=== PATIENT | female | born 1985 | race Hispanic/Latino ===

== ENCOUNTER 2017-06-22 15:32 | Emergency (ER) | payer SELFPAY ==
[~2017-06-22] VITALS: Ht 167.6 cm; Wt 85.3 kg
[2017-06-22 16:18] LABS: BASOPHILS # (AUTO) 0.1 (0.0-0.1); BASOPHILS % 1.3 % (0.0-1.0); EOSINOPHILS # (AUTO) 0.3 (0.0-0.4); EOSINOPHILS % 3.3 % (0.0-6.0); HEMATOCRIT 39.9 % (34.2-44.1); HEMOGLOBIN 13.3 g/dL (12.0-16.0); LYMPHOCYTES # (AUTO) 2.7 (1.0-3.2); LYMPHOCYTES % 26.5 % (18.0-39.1); MEAN CORPUSCULAR HEMOGLOBIN 28.3 pg (28-32); MEAN CORPUSCULAR HGB CONC 33.3 g/dL (31-35); MEAN CORPUSCULAR VOLUME 84.9 fL (81-99); MONOCYTES # (AUTO) 0.6 (0.2-0.8); NEUTROPHILS # (AUTO) 6.4 (2.1-6.9); NEUTROPHILS % 62.4 % (38.7-80.0); PLATELET COUNT 393 x10e3/uL (140-360); RED CELL DISTRIBUTION WIDTH 12.9 % (11.7-14.4)
[2017-06-22 16:31] LABS: INR 1.01; PROTHROMBIN TIME 12.5 seconds (11.9-14.5)
[2017-06-22 16:38] LABS: ALANINE AMINOTRANSFERASE 17 IU/L (0-55); ALBUMIN 3.5 g/dL (3.5-5.0); ALBUMIN/GLOBULIN RATIO 0.8 (0.8-2.0); ALKALINE PHOSPHATASE 87 IU/L (40-150); ANION GAP 10.8 mmol/L (8-16); BLOOD UREA NITROGEN 15 mg/dL (7-26); BUN/CREATININE RATIO 17 (6-25); CALCIUM 9.4 mg/dL (8.4-10.2); CARBON DIOXIDE 25 mmol/L (22-29); CHLORIDE 103 mmol/L (98-107); CREATININE, SERUM 0.89 mg/dL (0.57-1.11); EST GLOMERULAR FILTRATION RATE > 60 ML/MIN (60-); GLUCOSE 349 mg/dL (74-118); POTASSIUM 3.8 mmol/L (3.5-5.1); SODIUM 135 mmol/L (136-145)
--- NOTE | 2017-06-22 16:40 | Diagnostic Imaging Report ---
PROCEDURE:HAND RIGHT 3 VIEWS AP \T\ LAT COMPARISON:None. INDICATIONS:RIGHT FOURTH DIGIT INFECTION SINCE SURGERY ON May FINDINGS: Normal mineralization. No acute displaced fracture or dislocation. No cortical erosion or destruction. Joint spaces are preserved. No cystic erosive changes. Moderate soft tissue swelling in the fourth finger, predominantly in the distal aspect. CONCLUSION: Moderate soft tissue swelling of the fourth finger, predominantly in the distal aspect, without underlying bony abnormalities. Sonu Mills M.D. Dictated by: Sonu Mills M.D. on 06/22/2017 at 16:41 Electronically approved by: Sonu Mills M.D. on 06/22/2017 at 16:41
[2017-06-22] MEDS ORDERED: VANCOMYCIN 1GM/NS 250 ML 250 ML IV STA (17:06)
[2017-06-22] MEDS ORDERED: PIPER-TAZ 3.375 GM 50 ML IV STA (17:06)
[2017-06-22] MEDS ORDERED: INSULIN REGULAR, HUMAN 100 UNIT/1 ML 3ML VIAL IV ONE (19:00)
[2017-06-22 19:37] VITALS: BP 154/97
== END 2017-06-22 19:41 | disposition home or self-care (01) ==
LOC: ER 15:42
DX: L03.011 Cellulitis of right finger (principal)
CPT/HCPCS: 36415; 73130; 80053; 85025; 85610; 85730; 99283; J2543; J3370

== ENCOUNTER 2017-10-15 22:04 | Emergency (ER) | payer SELFPAY ==
[~2017-10-15] VITALS: Ht 167.6 cm; Wt 85.3 kg
[2017-10-15] MEDS ORDERED: CLINDAMYCIN PHOS 600 MG/ 4 ML VIAL IM STA (22:51)
[2017-10-15] MEDS ORDERED: NEOMYCIN/POLYMYX/BACITR OINT 0.9 GM PKT TOP STA (23:31)
== END 2017-10-16 00:17 | disposition home or self-care (01) ==
LOC: ER 22:04
DX: L03.114 Cellulitis of left upper limb (principal); E11.9 Type 2 diabetes mellitus without complications; I10 Essential (primary) hypertension; F19.90 Other psychoactive substance use, unspecified, uncomplicated; F17.210 Nicotine dependence, cigarettes, uncomplicated
CPT/HCPCS: 99282

== ENCOUNTER 2019-01-22 11:44 | Emergency (ER) | payer SELFPAY ==
[~2019-01-22] VITALS: Ht 167.6 cm; Wt 113.4 kg
[~2019-01-22 11:44] MED LIST: CIPRODEX OTIC7.5 ML OT; DEBROX15 ML OT; ZOFRAN4 MG SL
[2019-01-22] MEDS ORDERED: SODIUM CHLORIDE 0.9% 1000ML 1,000 ML IV STA (12:26)
[2019-01-22] MEDS ORDERED: INSULIN REGULAR, HUMAN 100 UNIT/1 ML 3ML VIAL SQ ONE (12:30)
[2019-01-22 12:35] LABS: BASOPHILS # (AUTO) 0.1 (0.0-0.1); BASOPHILS % 1.3 % (0.0-1.0); EOSINOPHILS # (AUTO) 0.3 (0.0-0.4); EOSINOPHILS % 3.3 % (0.0-6.0); HEMATOCRIT 39.9 % (34.2-44.1); HEMOGLOBIN 12.8 g/dL (12.0-16.0); LYMPHOCYTES # (AUTO) 3.1 (1.0-3.2); LYMPHOCYTES % 34.2 % (18.0-39.1); MEAN CORPUSCULAR HEMOGLOBIN 27.2 pg (28-32); MEAN CORPUSCULAR HGB CONC 32.1 g/dL (31-35); MEAN CORPUSCULAR VOLUME 84.7 fL (81-99); MONOCYTES # (AUTO) 0.4 (0.2-0.8); MONOCYTES % 4.3 % (4.4-11.3); NEUTROPHILS % 56.2 % (38.7-80.0); PLATELET COUNT 373 x10e3/uL (140-360); RED BLOOD COUNT 4.71 x10e6/uL (3.6-5.1)
[2019-01-22 12:57] LABS: ALANINE AMINOTRANSFERASE 14 IU/L (0-55); ALBUMIN 3.2 g/dL (3.5-5.0); ALBUMIN/GLOBULIN RATIO 0.8 (0.8-2.0); ALKALINE PHOSPHATASE 106 IU/L (40-150); ANION GAP 14.8 mmol/L (8-16); BLOOD UREA NITROGEN 15 mg/dL (7-26); BUN/CREATININE RATIO 18 (6-25); CALCIUM 9.2 mg/dL (8.4-10.2); CARBON DIOXIDE 21 mmol/L (22-29); CHLORIDE 100 mmol/L (98-107); CREATININE, SERUM 0.83 mg/dL (0.57-1.11); EST GLOMERULAR FILTRATION RATE > 60 ML/MIN (60-); GLUCOSE 392 mg/dL (74-118); POTASSIUM 4.8 mmol/L (3.5-5.1); SODIUM 131 mmol/L (136-145)
[2019-01-22 13:49] VITALS: BP 114/69
== END 2019-01-22 13:50 | disposition home or self-care (01) ==
LOC: ER 11:44
DX: E11.65 Type 2 diabetes mellitus with hyperglycemia (principal); F15.11 Other stimulant abuse, in remission; F11.11 Opioid abuse, in remission; Z79.84 Long term (current) use of oral hypoglycemic drugs
CPT/HCPCS: 36415; 80053; 82948; 85025; 99284; J1817; J7030

== ENCOUNTER 2020-12-20 21:02 | Inpatient (IN) | payer SELFPAY ==
[~2020-12-20] VITALS: Ht 167.6 cm; Wt 108.9 kg
[2020-12-20 22:11] LABS: RED BLOOD COUNT 4.37 x10e6/uL (3.6-5.1)
[2020-12-20 22:12] LABS: BASOPHILS # (AUTO) 0.1 (0.0-0.1); BASOPHILS % 0.9 % (0.0-1.0); EOSINOPHILS # (AUTO) 0.4 (0.0-0.4); EOSINOPHILS % 3.3 % (0.0-6.0); HEMATOCRIT 35.5 % (34.2-44.1); HEMOGLOBIN 10.5 g/dL (12.0-16.0); LYMPHOCYTES # (AUTO) 2.5 (1.0-3.2); LYMPHOCYTES % 20.6 % (18.0-39.1); MEAN CORPUSCULAR HGB CONC 29.6 g/dL (31-35); MEAN CORPUSCULAR VOLUME 81.2 fL (81-99); MONOCYTES # (AUTO) 0.5 (0.2-0.8); MONOCYTES % 4.3 % (4.4-11.3); NEUTROPHILS # (AUTO) 8.5 (2.1-6.9); NEUTROPHILS % 70.5 % (38.7-80.0); PLATELET COUNT 420 x10e3/uL (140-360); RED CELL DISTRIBUTION WIDTH 15.9 % (11.7-14.4)
[2020-12-20 22:29] LABS: ALBUMIN 3.1 g/dL (3.5-5.0); ALBUMIN/GLOBULIN RATIO 0.6 (0.8-2.0); ANION GAP 13.1 mmol/L (8-16); CALCIUM 8.4 mg/dL (8.4-10.2); CREATININE, SERUM 0.86 mg/dL (0.57-1.11); POTASSIUM 5.1 mmol/L (3.5-5.1)
[2020-12-20] MEDS ORDERED: SODIUM CHLORIDE 0.9% 1000ML 1,000 ML IV SCH (22:30)
[2020-12-20] MEDS ORDERED: SODIUM CHLORIDE 0.9% 1000ML 1,000 ML ONE (22:41)
[2020-12-20] MEDS ORDERED: GADOBENATE DIMEGLUMINE 1 ML IV ONE (22:50)
[2020-12-21] MEDS: FENTANYL CITRATE/PF 100MCG/2 ML INJ IV PRN ×3 (01:30→05:00)
[2020-12-21] MEDS ORDERED: FENTANYL CITRATE/PF 100MCG/2 ML INJ ONE (01:33)
[2020-12-21] MEDS ORDERED: Vancomycin IV 1 GM in SODIUM CHLORIDE 0.9% 250ML 250 ML IV STA (01:51)
[2020-12-21] MEDS ORDERED: PIPERACILLIN/TAZOBACTAM 4.5 GM in SODIUM CHLORIDE 0.9% 100 ML IV STA (01:51)
[2020-12-21] MEDS ORDERED: CEFEPIME 1 GM in SODIUM CHLORIDE 0.9% 50ML 50 ML IV ONE (03:00)
[2020-12-21] MEDS ORDERED: SODIUM CHLORIDE 0.9% 1000ML 1,000 ML IV SCH (05:00)
[2020-12-21] MEDS ORDERED: MORPHINE SULFATE INJ 4 MG/ML INJ 1ML IV PRN (05:00)
[2020-12-21] MEDS ORDERED: ONDANSETRON HCL INJ 2MG/ML 2ML 2 MG/ML VIAL IV PRN (05:00)
[2020-12-21] MEDS ORDERED: DIPHENHYDRAMINE HCL INJ 50 MG/ML VIAL IV NR (07:15)
[2020-12-21] MEDS: SODIUM CHLORIDE 0.9% 1000ML 1,000 ML IV SCH ×2 (08:22→12:42)
[2020-12-21] MEDS: HYDROMORPHONE 1MG/1ML INJ IV PRN ×4 (09:35→21:15)
[2020-12-21 10:05] VITALS: BP 115/72
[2020-12-21 12:08] VITALS: BP 123/78
[2020-12-21] MEDS ORDERED: DEXTROSE 50% SYRINGE 50 ML IV PRN (12:45)
[2020-12-21] MEDS: INSULIN REGULAR, HUMAN 100 UNIT/1 ML SQ SCH ×3 (13:00→21:00)
[2020-12-21] MEDS: CEFEPIME 1 GM in SODIUM CHLORIDE 0.9% 50ML 50 ML IV SCH (16:18)
[2020-12-21 16:35] VITALS: BP 116/65
[2020-12-21] MEDS: Vancomycin IV 1 GM in SODIUM CHLORIDE 0.9% 250ML 250 ML IV SCH (16:55)
[2020-12-21] MEDS ORDERED: TRAZODONE HCL50 MG PO (17:03)
[2020-12-21] MEDS ORDERED: ZOLOFT100 MG PO (17:03)
[2020-12-21] MEDS ORDERED: HYDROXYZINE HCL25 MG PO (17:03)
[2020-12-21] MEDS: ACETAMINOPHEN 325 MG TAB PO PRN (18:51)
[2020-12-21 20:06] VITALS: BP 104/76
[2020-12-21] MEDS: TRAZODONE HCL 50 MG TAB PO SCH (21:00)
[2020-12-21] MEDS: HYDROXYZINE HCL 25 MG TAB PO SCH (21:00)
[2020-12-21 21:41] VITALS: BP 104/76
[2020-12-22] VITALS (8 sets, daily range): BP systolic 104–160; BP diastolic 55–79
[2020-12-22] MEDS: Vancomycin IV 1 GM in SODIUM CHLORIDE 0.9% 250ML 250 ML IV SCH ×2 (02:11→14:42)
[2020-12-22] MEDS: SODIUM CHLORIDE 0.9% 1000ML 1,000 ML IV SCH ×4 (02:26→19:30)
[2020-12-22] MEDS: HYDROMORPHONE 1MG/1ML INJ IV PRN ×4 (02:41→23:39)
[2020-12-22 04:59] LABS: BASOPHILS # (AUTO) 0.1 (0.0-0.1); BASOPHILS % 1.5 % (0.0-1.0); EOSINOPHILS # (AUTO) 0.5 (0.0-0.4); EOSINOPHILS % 6.4 % (0.0-6.0); HEMATOCRIT 32.4 % (34.2-44.1); HEMOGLOBIN 9.7 g/dL (12.0-16.0); LYMPHOCYTES # (AUTO) 3.2 (1.0-3.2); LYMPHOCYTES % 39.6 % (18.0-39.1); MEAN CORPUSCULAR HEMOGLOBIN 24.1 pg (28-32); MEAN CORPUSCULAR HGB CONC 29.9 g/dL (31-35); MEAN CORPUSCULAR VOLUME 80.4 fL (81-99); MONOCYTES # (AUTO) 0.5 (0.2-0.8); MONOCYTES % 5.8 % (4.4-11.3); NEUTROPHILS # (AUTO) 3.8 (2.1-6.9); NEUTROPHILS % 46.3 % (38.7-80.0); PLATELET COUNT 379 x10e3/uL (140-360); RED BLOOD COUNT 4.03 x10e6/uL (3.6-5.1); RED CELL DISTRIBUTION WIDTH 15.9 % (11.7-14.4)
[2020-12-22 05:29] LABS: ANION GAP 9.8 mmol/L (8-16); CALCIUM 8.1 mg/dL (8.4-10.2); CREATININE, SERUM 0.7 mg/dL (0.57-1.11)
[2020-12-22 05:35] LABS: POTASSIUM 3.8 mmol/L (3.5-5.1)
[2020-12-22 07:27] LABS: EOSINOPHILS % (MANUAL) 7 % (0-7); LYMPHOCYTES % (MANUAL) 39 % (19-48); MONOCYTES % (MANUAL) 6 % (3.4-9.0); NEUTROPHILS % (MANUAL) 48 % (40-74); PLATELET ESTIMATE ADEQUATE; PLATELET MORPHOLOGY COMMENT NORMAL; RBC MORPHOLOGY COMMENT NORMAL
[2020-12-22] MEDS: INSULIN REGULAR, HUMAN 100 UNIT/1 ML SQ SCH ×4 (07:30→20:25)
[2020-12-22] MEDS: HYDROXYZINE HCL 25 MG TAB PO SCH ×3 (08:37→20:25)
[2020-12-22] MEDS: CEFEPIME 1 GM in SODIUM CHLORIDE 0.9% 50ML 50 ML IV SCH ×5 (08:37→23:39)
[2020-12-22] MEDS: SERTRALINE HCL 100 MG TAB PO SCH (08:37)
[2020-12-22] MEDS: ACETAMINOPHEN 325 MG TAB PO PRN ×2 (08:56→20:25)
[2020-12-22] MEDS ORDERED: SUCRALFATE 1 GM/10 ML SUSP NG PRN (16:00)
[2020-12-22] MEDS: FAMOTIDINE 20 MG TAB PO SCH (16:49)
[2020-12-22] MEDS ORDERED: SUCRALFATE 1 GM/10 ML SUSP NG ONE (16:50)
[2020-12-22] MEDS: METFORMIN HCL 500 MG TAB CR PO SCH (17:13)
[2020-12-22] MEDS: TRAZODONE HCL 50 MG TAB PO SCH (20:25)
[2020-12-23] VITALS (8 sets, daily range): BP systolic 113–164; BP diastolic 65–96
[2020-12-23] MEDS: Vancomycin IV 1 GM in SODIUM CHLORIDE 0.9% 250ML 250 ML IV SCH (02:00)
[2020-12-23] MEDS: SODIUM CHLORIDE 0.9% 1000ML 1,000 ML IV SCH ×3 (02:03→17:43)
[2020-12-23] MEDS: HYDROMORPHONE 1MG/1ML INJ IV PRN ×6 (03:45→23:45)
[2020-12-23] MEDS: ACETAMINOPHEN 325 MG TAB PO PRN ×2 (04:02→18:40)
[2020-12-23 04:59] LABS: BASOPHILS # (AUTO) 0.1 (0.0-0.1); BASOPHILS % 1.4 % (0.0-1.0); EOSINOPHILS # (AUTO) 0.5 (0.0-0.4); EOSINOPHILS % 7.1 % (0.0-6.0); HEMATOCRIT 32.5 % (34.2-44.1); HEMOGLOBIN 9.8 g/dL (12.0-16.0); LYMPHOCYTES # (AUTO) 3.3 (1.0-3.2); LYMPHOCYTES % 45.1 % (18.0-39.1); MEAN CORPUSCULAR HGB CONC 30.2 g/dL (31-35); MEAN CORPUSCULAR VOLUME 79.5 fL (81-99); MONOCYTES # (AUTO) 0.5 (0.2-0.8); NEUTROPHILS # (AUTO) 2.9 (2.1-6.9); NEUTROPHILS % 39.1 % (38.7-80.0); PLATELET COUNT 382 x10e3/uL (140-360); RED BLOOD COUNT 4.09 x10e6/uL (3.6-5.1); RED CELL DISTRIBUTION WIDTH 15.9 % (11.7-14.4)
[2020-12-23 05:31] LABS: ANION GAP 12.2 mmol/L (8-16); CALCIUM 8.4 mg/dL (8.4-10.2); CHOL/HDL RATIO 4.2 (3.0-3.6); CREATININE, SERUM 0.67 mg/dL (0.57-1.11); PHOSPHORUS 3.4 MG/DL (2.3-4.7); POTASSIUM 4.2 mmol/L (3.5-5.1)
[2020-12-23 05:52] LABS: THYROID STIMULATING HORMONE 2.429 uIU/mL (0.350-4.940)
[2020-12-23] MEDS: FAMOTIDINE 20 MG TAB PO SCH ×2 (07:51→16:31)
[2020-12-23] MEDS: CEFEPIME 1 GM in SODIUM CHLORIDE 0.9% 50ML 50 ML IV SCH ×3 (07:51→23:55)
[2020-12-23] MEDS: METFORMIN HCL 500 MG TAB CR PO SCH ×2 (07:51→16:31)
[2020-12-23] MEDS: BACITRACIN ZINC 15 GM OINT TOP SCH (07:58)
[2020-12-23] MEDS: HYDROXYZINE HCL 25 MG TAB PO SCH ×3 (07:58→19:45)
[2020-12-23] MEDS: SERTRALINE HCL 100 MG TAB PO SCH (07:58)
[2020-12-23] MEDS: INSULIN REGULAR, HUMAN 100 UNIT/1 ML SQ SCH ×4 (08:15→21:00)
[2020-12-23] MEDS: Vancomycin IV 1.25 GM in SODIUM CHLORIDE 0.9% 250ML 250 ML IV SCH (14:30)
[2020-12-23] MEDS: TRAZODONE HCL 50 MG TAB PO SCH (19:45)
[2020-12-24] VITALS (8 sets, daily range): BP systolic 108–144; BP diastolic 63–81
[2020-12-24] MEDS: Vancomycin IV 1.25 GM in SODIUM CHLORIDE 0.9% 250ML 250 ML IV SCH ×2 (02:00→14:45)
[2020-12-24] MEDS: SODIUM CHLORIDE 0.9% 1000ML 1,000 ML IV SCH ×3 (02:18→17:02)
[2020-12-24] MEDS: HYDROMORPHONE 1MG/1ML INJ IV PRN ×5 (03:45→19:45)
[2020-12-24] MEDS: FAMOTIDINE 20 MG TAB PO SCH ×2 (07:56→17:01)
[2020-12-24] MEDS: CEFEPIME 1 GM in SODIUM CHLORIDE 0.9% 50ML 50 ML IV SCH ×2 (07:56→17:01)
[2020-12-24] MEDS: METFORMIN HCL 500 MG TAB CR PO SCH ×2 (07:56→17:01)
[2020-12-24] MEDS: HYDROXYZINE HCL 25 MG TAB PO SCH ×3 (08:01→20:59)
[2020-12-24] MEDS: SERTRALINE HCL 100 MG TAB PO SCH (08:01)
[2020-12-24] MEDS: BACITRACIN ZINC 15 GM OINT TOP SCH (08:01)
[2020-12-24] MEDS: INSULIN REGULAR, HUMAN 100 UNIT/1 ML SQ SCH ×4 (08:07→21:00)
[2020-12-24] MEDS: HYDROCODONE/APAP 7.5MG-325MG 1 EA TAB PO PRN ×4 (09:59→23:41)
[2020-12-24] MEDS: ACETAMINOPHEN 325 MG TAB PO PRN ×2 (09:59→18:25)
[2020-12-24] MEDS: TRAZODONE HCL 50 MG TAB PO SCH (20:59)
[2020-12-25] VITALS (8 sets, daily range): BP systolic 104–130; BP diastolic 67–78
[2020-12-25] MEDS: HYDROMORPHONE 1MG/1ML INJ IV PRN ×6 (00:53→22:46)
[2020-12-25] MEDS: SODIUM CHLORIDE 0.9% 1000ML 1,000 ML IV SCH ×3 (01:24→22:39)
[2020-12-25] MEDS: Vancomycin IV 1.25 GM in SODIUM CHLORIDE 0.9% 250ML 250 ML IV SCH ×2 (02:08→14:40)
[2020-12-25 06:25] LABS: BASOPHILS # (AUTO) 0.1 (0.0-0.1); BASOPHILS % 1.3 % (0.0-1.0); EOSINOPHILS # (AUTO) 0.5 (0.0-0.4); EOSINOPHILS % 5.8 % (0.0-6.0); HEMATOCRIT 32.1 % (34.2-44.1); HEMOGLOBIN 9.4 g/dL (12.0-16.0); LYMPHOCYTES # (AUTO) 3.5 (1.0-3.2); LYMPHOCYTES % 41.1 % (18.0-39.1); MEAN CORPUSCULAR HEMOGLOBIN 23.9 pg (28-32); MEAN CORPUSCULAR HGB CONC 29.3 g/dL (31-35); MEAN CORPUSCULAR VOLUME 81.5 fL (81-99); MONOCYTES # (AUTO) 0.6 (0.2-0.8); MONOCYTES % 7.2 % (4.4-11.3); NEUTROPHILS # (AUTO) 3.7 (2.1-6.9); NEUTROPHILS % 44.1 % (38.7-80.0); PLATELET COUNT 380 x10e3/uL (140-360); RED BLOOD COUNT 3.94 x10e6/uL (3.6-5.1); RED CELL DISTRIBUTION WIDTH 15.9 % (11.7-14.4)
[2020-12-25 06:50] LABS: ANION GAP 13.4 mmol/L (8-16); CALCIUM 8.5 mg/dL (8.4-10.2); CREATININE, SERUM 0.7 mg/dL (0.57-1.11); POTASSIUM 4.4 mmol/L (3.5-5.1)
[2020-12-25] MEDS: INSULIN REGULAR, HUMAN 100 UNIT/1 ML SQ SCH ×5 (07:30→21:45)
[2020-12-25] MEDS: HYDROCODONE/APAP 7.5MG-325MG 1 EA TAB PO PRN (07:30)
[2020-12-25] MEDS: ACETAMINOPHEN 325 MG TAB PO PRN (07:31)
[2020-12-25] MEDS: FAMOTIDINE 20 MG TAB PO SCH ×2 (08:52→16:51)
[2020-12-25] MEDS: BACITRACIN ZINC 15 GM OINT TOP SCH (08:53)
[2020-12-25] MEDS: METFORMIN HCL 500 MG TAB CR PO SCH ×2 (08:53→16:51)
[2020-12-25] MEDS: HYDROXYZINE HCL 25 MG TAB PO SCH ×4 (08:53→21:45)
[2020-12-25] MEDS: CEFEPIME 1 GM in SODIUM CHLORIDE 0.9% 50ML 50 ML IV SCH ×4 (08:53→16:51)
[2020-12-25] MEDS: SERTRALINE HCL 100 MG TAB PO SCH (08:53)
[2020-12-25] MEDS: HYDROCODONE/APAP 10MG-325MG TAB PO PRN ×3 (11:55→21:45)
[2020-12-25] MEDS: TRAZODONE HCL 50 MG TAB PO SCH ×2 (21:00→21:45)
[2020-12-26 00:15] VITALS: BP 110/75
[2020-12-26] MEDS: CEFEPIME 1 GM in SODIUM CHLORIDE 0.9% 50ML 50 ML IV SCH ×2 (00:43→08:32)
[2020-12-26] MEDS: SODIUM CHLORIDE 0.9% 1000ML 1,000 ML IV SCH (01:03)
[2020-12-26] MEDS: Vancomycin IV 1.25 GM in SODIUM CHLORIDE 0.9% 250ML 250 ML IV SCH (01:55)
[2020-12-26] MEDS: HYDROCODONE/APAP 10MG-325MG TAB PO PRN ×2 (01:55→09:10)
[2020-12-26] MEDS: HYDROMORPHONE 1MG/1ML INJ IV PRN ×3 (02:49→11:18)
[2020-12-26 05:18] VITALS: BP 106/66
[2020-12-26 07:08] VITALS: BP 125/80
[2020-12-26] MEDS: INSULIN REGULAR, HUMAN 100 UNIT/1 ML SQ SCH ×2 (07:30→11:30)
[2020-12-26 08:04] VITALS: BP 125/80
[2020-12-26] MEDS: HYDROXYZINE HCL 25 MG TAB PO SCH (08:32)
[2020-12-26] MEDS: SERTRALINE HCL 100 MG TAB PO SCH (08:32)
[2020-12-26] MEDS: BACITRACIN ZINC 15 GM OINT TOP SCH (08:32)
[2020-12-26] MEDS: FAMOTIDINE 20 MG TAB PO SCH (08:32)
[2020-12-26] MEDS: METFORMIN HCL 500 MG TAB CR PO SCH (08:32)
[2020-12-26] MEDS ORDERED: CIPRO500 MG PO (10:11)
[2020-12-26] MEDS ORDERED: DOXYCYCLINE HY100 MG PO (10:11)
[2020-12-26] MEDS ORDERED: METFORMIN HCL500 MG PO (10:13)
[2020-12-26 11:13] VITALS: BP 109/80
== END 2020-12-26 14:46 | disposition home or self-care (01) | DRG 539 ==
LOC: ER 21:27 → ERHOLD 12-21 04:56 → MED/SURG2 12-21 09:00
PROVIDERS: ADMIT Internal Medicine; ATTEND Internal Medicine
DX: M46.22 Osteomyelitis of vertebra, cervical region (principal); G06.1 Intraspinal abscess and granuloma; F41.9 Anxiety disorder, unspecified; F32.A Depression, unspecified; E11.65 Type 2 diabetes mellitus with hyperglycemia; F43.10 Post-traumatic stress disorder, unspecified; M48.02 Spinal stenosis, cervical region; Z91.14 Patient's other noncompliance with medication regimen; F14.90 Cocaine use, unspecified, uncomplicated; D64.9 Anemia, unspecified; Z20.822 Contact with and (suspected) exposure to COVID-19; M46.42 Discitis, unspecified, cervical region
CPT/HCPCS: 36415; 72156; 72157; 72158; 80048; 80053; 80061; 80202; 82948; 83036; 83605; 83735; 84100; 84443; 84702; 85025; 85651; 86140; 87040; 96361; 99251; 99285; J0692; J1170; J1200; J1817; J2270; J2405; J2543; J3010; J3370; J3410; J7030; J7050; U0002

== ENCOUNTER 2021-04-13 20:20 | Inpatient (IN) | payer SELFPAY ==
[~2021-04-13] VITALS: Ht 167.6 cm; Wt 108.9 kg
[~2021-04-13 20:20] MED LIST changes: +CIPRO500 MG PO; +DOXYCYCLINE HY100 MG PO; +HYDROXYZINE HCL25 MG PO; +METFORMIN HCL500 MG PO; +TRAZODONE HCL50 MG PO; +ZOLOFT100 MG PO
[2021-04-13] MEDS ORDERED: SODIUM CHLORIDE 0.9% 1000ML 1,000 ML IV STA ×2 (20:27→23:37)
[2021-04-13] MEDS ORDERED: DEXTROSE 50% SYRINGE 50 ML IV PRN (20:45)
[2021-04-13 20:49] LABS: BASOPHILS # (AUTO) 0.1 (0.0-0.1); BASOPHILS % 1.2 % (0.0-1.0); EOSINOPHILS # (AUTO) 0.4 (0.0-0.4); EOSINOPHILS % 3.7 % (0.0-6.0); HEMATOCRIT 38.9 % (34.2-44.1); HEMOGLOBIN 11.6 g/dL (12.0-16.0); LYMPHOCYTES # (AUTO) 2.7 (1.0-3.2); LYMPHOCYTES % 28.6 % (18.0-39.1); MEAN CORPUSCULAR HEMOGLOBIN 24.4 pg (28-32); MEAN CORPUSCULAR HGB CONC 29.8 g/dL (31-35); MEAN CORPUSCULAR VOLUME 81.9 fL (81-99); MONOCYTES # (AUTO) 0.4 (0.2-0.8); MONOCYTES % 4.4 % (4.4-11.3); NEUTROPHILS # (AUTO) 5.8 (2.1-6.9); NEUTROPHILS % 61.6 % (38.7-80.0); PLATELET COUNT 310 x10e3/uL (140-360); RED BLOOD COUNT 4.75 x10e6/uL (3.6-5.1); RED CELL DISTRIBUTION WIDTH 14.9 % (11.7-14.4)
[2021-04-13] MEDS: INSULIN REGULAR, HUMAN 100 UNIT/1 ML SQ SCH (21:00)
[2021-04-13 21:14] LABS: ALBUMIN 3.2 g/dL (3.5-5.0); ALBUMIN/GLOBULIN RATIO 0.5 (0.8-2.0); ANION GAP 16.6 mmol/L (8-16); CALCIUM 9.5 mg/dL (8.4-10.2); CREATININE, SERUM 0.97 mg/dL (0.57-1.11); POTASSIUM 4.6 mmol/L (3.5-5.1)
[2021-04-13] MEDS ORDERED: INSULIN REGULAR, HUMAN 100 UNIT/1 ML IV STA (21:19)
[2021-04-13] MEDS: PIPERACILLIN/TAZOBACTAM 3.375 GM in SODIUM CHLORIDE 0.9% 50ML 50 ML IV SCH (21:25)
[2021-04-13] MEDS ORDERED: ONDANSETRON HCL INJ 2MG/ML 2ML 2 MG/ML VIAL IV PRN (21:30)
[2021-04-13] MEDS ORDERED: Morphine 4mg Syringe 4 MG/ML INJ IV PRN (21:30)
[2021-04-13] MEDS ORDERED: ACETAMINOPHEN 325 MG TAB PO PRN (21:45)
[2021-04-13] MEDS: SODIUM CHLORIDE 0.9% 1000ML 1,000 ML IV SCH (22:05)
[2021-04-13 22:07] LABS: CLARITY,URINE SL CLOUDY (CLEAR); COLOR,URINE YELLOW (YELLOW); LEUKOCYTE ESTERASE ,URINE NEGATIVE (NEGATIVE); NITRITE,URINE NEGATIVE (NEGATIVE); PROTEIN,URINE DIPSTICK TRACE (NEGATIVE); URINE UROBILINOGEN 0.2 mg/dL (0.2 - 1)
[2021-04-13 22:09] LABS: AMPHETAMINES SCREEN,URINE NEGATIVE (NEGATIVE); BENZODIAZEPINES SCREEN,URINE NEGATIVE (NEGATIVE); PHENCYCLIDINE SCREEN,URINE NEGATIVE (NEGATIVE)
[2021-04-13 22:12] LABS: KETONES,URINE NEGATIVE (NEGATIVE)
[2021-04-13 22:13] LABS: BACTERIA,URINE MODERATE /HPF
[2021-04-13 22:14] LABS: TRICHOMONAS,URINE FEW
[2021-04-13 22:15] LABS: EPITHELIAL CELLS,URINE MODERATE /LPF
[2021-04-13 23:40] LABS: ANION GAP 14.8 mmol/L (8-16); CALCIUM 9.1 mg/dL (8.4-10.2); CREATININE, SERUM 0.78 mg/dL (0.57-1.11); POTASSIUM 3.8 mmol/L (3.5-5.1)
[2021-04-14] VITALS (7 sets, daily range): BP systolic 110–131; BP diastolic 63–90
[2021-04-14] MEDS ORDERED: METRONIDAZOLE 500 MG TAB PO ONE (00:15)
[2021-04-14] MEDS ORDERED: Vancomycin IV 1 GM in SODIUM CHLORIDE 0.9% 250ML 250 ML IV ONE (00:15)
[2021-04-14] MEDS: TRAMADOL HCL 50 MG TAB PO PRN ×2 (01:07→05:07)
[2021-04-14] MEDS: PIPERACILLIN/TAZOBACTAM 3.375 GM in SODIUM CHLORIDE 0.9% 50ML 50 ML IV SCH ×4 (01:07→18:02)
[2021-04-14] MEDS ORDERED: SEROQUEL100 MG PO (02:01)
[2021-04-14] MEDS ORDERED: VISTARIL50 MG PO (02:04)
[2021-04-14] MEDS: SODIUM CHLORIDE 0.9% 1000ML 1,000 ML IV SCH ×3 (04:54→21:55)
[2021-04-14 06:57] LABS: EOSINOPHILS % 4.4 % (0.0-6.0); HEMATOCRIT 31.7 % (34.2-44.1); HEMOGLOBIN 9.6 g/dL (12.0-16.0); MEAN CORPUSCULAR HEMOGLOBIN 24.4 pg (28-32); MEAN CORPUSCULAR HGB CONC 30.3 g/dL (31-35); MEAN CORPUSCULAR VOLUME 80.5 fL (81-99); MONOCYTES % 5.2 % (4.4-11.3); NEUTROPHILS % 56.9 % (38.7-80.0); PLATELET COUNT 436 x10e3/uL (140-360); RED BLOOD COUNT 3.94 x10e6/uL (3.6-5.1); RED CELL DISTRIBUTION WIDTH 14.7 % (11.7-14.4)
[2021-04-14 06:58] LABS: BASOPHILS # (AUTO) 0.1 (0.0-0.1); EOSINOPHILS # (AUTO) 0.3 (0.0-0.4); LYMPHOCYTES # (AUTO) 2.5 (1.0-3.2); MONOCYTES # (AUTO) 0.4 (0.2-0.8); NEUTROPHILS # (AUTO) 4.4 (2.1-6.9)
[2021-04-14 07:20] LABS: ALBUMIN 2.4 g/dL (3.5-5.0); ALBUMIN/GLOBULIN RATIO 0.5 (0.8-2.0); ANION GAP 10.1 mmol/L (8-16); CALCIUM 8.2 mg/dL (8.4-10.2); CREATININE, SERUM 0.8 mg/dL (0.57-1.11); POTASSIUM 4.1 mmol/L (3.5-5.1)
[2021-04-14 07:21] LABS: CHOL/HDL RATIO 4.6 (3.0-3.6)
[2021-04-14 07:43] LABS: FERRITIN 54.86 ng/mL (4.63-204.00)
[2021-04-14 08:04] LABS: HIV 1&2 AB SCREEN NON-REACTIVE (NONREACTIVE)
[2021-04-14] MEDS: INSULIN REGULAR, HUMAN 100 UNIT/1 ML SQ SCH ×4 (08:25→21:55)
[2021-04-14] MEDS: HYDROXYZINE PAMOATE 25 MG CAP PO SCH ×2 (12:11→18:02)
[2021-04-14] MEDS: INSULIN GLARGINE 100 UNITS/ML VIAL SQ SCH (21:55)
[2021-04-14] MEDS: QUETIAPINE FUMARATE 100 MG TAB PO SCH (21:55)
[2021-04-15] VITALS (9 sets, daily range): BP systolic 114–160; BP diastolic 65–98
[2021-04-15] MEDS: PIPERACILLIN/TAZOBACTAM 3.375 GM in SODIUM CHLORIDE 0.9% 50ML 50 ML IV SCH ×5 (00:07→23:18)
[2021-04-15] MEDS: HYDROXYZINE PAMOATE 25 MG CAP PO SCH ×5 (00:07→23:18)
[2021-04-15] MEDS: SODIUM CHLORIDE 0.9% 1000ML 1,000 ML IV SCH ×2 (05:45→13:30)
[2021-04-15] MEDS: INSULIN REGULAR, HUMAN 100 UNIT/1 ML SQ SCH ×4 (07:30→21:00)
[2021-04-15] MEDS: FOLIC ACID 1 MG TAB PO SCH (09:00)
[2021-04-15] MEDS: FERROUS SULFATE 325 MG TAB PO SCH (09:00)
[2021-04-15] MEDS ORDERED: LIDOCAINE HCL 2% LOCAL INJ 5 ML SDV VIAL INJ ONE (12:14)
[2021-04-15] MEDS ORDERED: METOCLOPRAMIDE HCL 10 MG/2ML VIAL ONE (12:14)
[2021-04-15] MEDS ORDERED: PHENYLEPHRINE HCL 1% 10 MG/ML VIAL ONE (12:14)
[2021-04-15] MEDS ORDERED: DEXAMETHASONE SOD PHOS INJ 4 MG/ML SDV ONE (12:14)
[2021-04-15] MEDS ORDERED: ONDANSETRON HCL INJ 2MG/ML 2ML 2 MG/ML VIAL ONE (12:14)
[2021-04-15] MEDS ORDERED: PROPOFOL IV EMULSION 10 MG/ML 20 ML VIAL ONE (12:14)
[2021-04-15] MEDS ORDERED: SEVOFLURANE INHAL SOLN 250 ML PEN BTL ONE (12:14)
[2021-04-15] MEDS ORDERED: POVIDONE IODINE 0.05% 0.05 % ML PO ONE (12:14)
[2021-04-15] MEDS ORDERED: MIDAZOLAM HCL 2 MG/2 ML VIAL ONE (12:55)
[2021-04-15] MEDS ORDERED: FENTANYL CITRATE/PF 100MCG/2 ML INJ ONE (12:55)
[2021-04-15] MEDS ORDERED: Vancomycin IV 0 MG ONE (13:41)
[2021-04-15] MEDS ORDERED: Vancomycin IV 500 MG ONE (14:16)
[2021-04-15] MEDS ORDERED: BUPIVACAINE HCL 0.5% INJ 30 ML VIAL INJ ONE (14:28)
[2021-04-15] MEDS: TRAMADOL HCL 50 MG TAB PO PRN ×3 (17:25→22:42)
[2021-04-15] MEDS: MUPIROCIN 2% OINT 22 GM TUBE TOP SCH (17:57)
[2021-04-15] MEDS: QUETIAPINE FUMARATE 100 MG TAB PO SCH (21:00)
[2021-04-15] MEDS: INSULIN GLARGINE 100 UNITS/ML VIAL SQ SCH (21:07)
[2021-04-15] MEDS: DEXAMETHASONE 4 MG TAB PO SCH (22:47)
[2021-04-16 00:06] VITALS: BP 129/75
[2021-04-16] MEDS: HYDROXYZINE PAMOATE 25 MG CAP PO SCH ×4 (06:00→23:52)
[2021-04-16] MEDS: PIPERACILLIN/TAZOBACTAM 3.375 GM in SODIUM CHLORIDE 0.9% 50ML 50 ML IV SCH ×4 (06:00→23:52)
[2021-04-16 06:42] VITALS: BP 120/77
[2021-04-16 07:03] LABS: BASOPHILS # (AUTO) 0.1 (0.0-0.1); BASOPHILS % 0.4 % (0.0-1.0); HEMATOCRIT 32.4 % (34.2-44.1); HEMOGLOBIN 9.8 g/dL (12.0-16.0); LYMPHOCYTES # (AUTO) 0.9 (1.0-3.2); LYMPHOCYTES % 6.8 % (18.0-39.1); MEAN CORPUSCULAR HEMOGLOBIN 24.5 pg (28-32); MEAN CORPUSCULAR HGB CONC 30.2 g/dL (31-35); MONOCYTES # (AUTO) 0.1 (0.2-0.8); NEUTROPHILS # (AUTO) 11.5 (2.1-6.9); NEUTROPHILS % 91.3 % (38.7-80.0); PLATELET COUNT 491 x10e3/uL (140-360); RED CELL DISTRIBUTION WIDTH 14.7 % (11.7-14.4)
[2021-04-16] MEDS: INSULIN REGULAR, HUMAN 100 UNIT/1 ML SQ SCH ×4 (07:30→22:02)
[2021-04-16 07:34] LABS: ALBUMIN 2.7 g/dL (3.5-5.0); ALBUMIN/GLOBULIN RATIO 0.6 (0.8-2.0); ANION GAP 13.3 mmol/L (8-16); CALCIUM 8.8 mg/dL (8.4-10.2); CREATININE, SERUM 0.81 mg/dL (0.57-1.11); POTASSIUM 4.3 mmol/L (3.5-5.1)
[2021-04-16 08:00] VITALS: BP 133/83
[2021-04-16] MEDS: FOLIC ACID 1 MG TAB PO SCH (09:00)
[2021-04-16] MEDS ORDERED: MUPIROCIN 2% OINT 22 GM TUBE TOP SCH (09:00)
[2021-04-16] MEDS: MUPIROCIN 2% OINT 22 GM TUBE TOP SCH (09:00)
[2021-04-16] MEDS: DEXAMETHASONE 4 MG TAB PO SCH (09:00)
[2021-04-16] MEDS: FERROUS SULFATE 325 MG TAB PO SCH (09:00)
[2021-04-16] MEDS: TRAMADOL HCL 50 MG TAB PO PRN ×3 (11:15→22:04)
[2021-04-16] MEDS ORDERED: INSULIN REGULAR, HUMAN 100 UNIT/1 ML SQ ONE (12:30)
[2021-04-16] MEDS: INSULIN LISPRO 100 UNIT/1 ML 3ML VIAL SQ SCH ×2 (16:30→22:01)
[2021-04-16 17:35] VITALS: BP 158/92
[2021-04-16 20:14] VITALS: BP 134/71
[2021-04-16 20:37] VITALS: BP 134/71
[2021-04-16] MEDS ORDERED: INSULIN GLARGINE 100 UNITS/ML VIAL SQ SCH (21:00)
[2021-04-16] MEDS: QUETIAPINE FUMARATE 100 MG TAB PO SCH (22:01)
[2021-04-17] VITALS (8 sets, daily range): BP systolic 94–139; BP diastolic 63–74
[2021-04-17] MEDS: HYDROXYZINE PAMOATE 25 MG CAP PO SCH ×3 (05:53→17:32)
[2021-04-17] MEDS: PIPERACILLIN/TAZOBACTAM 3.375 GM in SODIUM CHLORIDE 0.9% 50ML 50 ML IV SCH ×3 (05:53→17:32)
[2021-04-17] MEDS: INSULIN REGULAR, HUMAN 100 UNIT/1 ML SQ SCH ×4 (07:30→21:00)
[2021-04-17] MEDS: FERROUS SULFATE 325 MG TAB PO SCH (09:00)
[2021-04-17] MEDS: MUPIROCIN 2% OINT 22 GM TUBE TOP SCH (09:00)
[2021-04-17] MEDS: FOLIC ACID 1 MG TAB PO SCH (09:00)
[2021-04-17] MEDS: INSULIN LISPRO 100 UNIT/1 ML 3ML VIAL SQ SCH ×4 (09:58→21:26)
[2021-04-17 10:11] LABS: BASOPHILS # (AUTO) 0.1 (0.0-0.1); BASOPHILS % 0.6 % (0.0-1.0); EOSINOPHILS # (AUTO) 0.1 (0.0-0.4); EOSINOPHILS % 0.4 % (0.0-6.0); HEMATOCRIT 33.4 % (34.2-44.1); HEMOGLOBIN 9.7 g/dL (12.0-16.0); LYMPHOCYTES # (AUTO) 3.7 (1.0-3.2); MEAN CORPUSCULAR HEMOGLOBIN 24.4 pg (28-32); MEAN CORPUSCULAR VOLUME 84.1 fL (81-99); MONOCYTES # (AUTO) 0.6 (0.2-0.8); MONOCYTES % 3.3 % (4.4-11.3); NEUTROPHILS # (AUTO) 13.1 (2.1-6.9); NEUTROPHILS % 74.3 % (38.7-80.0); PLATELET COUNT 463 x10e3/uL (140-360); RED BLOOD COUNT 3.97 x10e6/uL (3.6-5.1); RED CELL DISTRIBUTION WIDTH 15.5 % (11.7-14.4)
[2021-04-17] MEDS: TRAMADOL HCL 50 MG TAB PO PRN ×2 (13:08→21:24)
[2021-04-17] MEDS: INSULIN GLARGINE 100 UNITS/ML VIAL SQ SCH (21:26)
[2021-04-17] MEDS: QUETIAPINE FUMARATE 100 MG TAB PO SCH (22:17)
[2021-04-18] VITALS (7 sets, daily range): BP systolic 86–107; BP diastolic 50–65
[2021-04-18] MEDS: HYDROXYZINE PAMOATE 25 MG CAP PO SCH ×4 (00:06→17:36)
[2021-04-18] MEDS: PIPERACILLIN/TAZOBACTAM 3.375 GM in SODIUM CHLORIDE 0.9% 50ML 50 ML IV SCH ×4 (00:06→21:35)
[2021-04-18] MEDS: INSULIN REGULAR, HUMAN 100 UNIT/1 ML SQ SCH ×4 (07:30→21:00)
[2021-04-18] MEDS: INSULIN LISPRO 100 UNIT/1 ML 3ML VIAL SQ SCH ×4 (08:30→21:37)
[2021-04-18] MEDS: TRAMADOL HCL 50 MG TAB PO PRN ×2 (09:56→15:09)
[2021-04-18] MEDS: MUPIROCIN 2% OINT 22 GM TUBE TOP SCH (09:57)
[2021-04-18] MEDS: FOLIC ACID 1 MG TAB PO SCH (09:57)
[2021-04-18] MEDS: FERROUS SULFATE 325 MG TAB PO SCH (09:57)
[2021-04-18] MEDS: QUETIAPINE FUMARATE 100 MG TAB PO SCH (21:34)
[2021-04-18] MEDS: INSULIN GLARGINE 100 UNITS/ML VIAL SQ SCH (21:37)
[2021-04-19] MEDS: HYDROXYZINE PAMOATE 25 MG CAP PO SCH ×3 (00:08→12:18)
[2021-04-19] MEDS: TRAMADOL HCL 50 MG TAB PO PRN ×3 (00:27→09:45)
[2021-04-19 01:01] VITALS: BP 90/61
[2021-04-19] MEDS: PIPERACILLIN/TAZOBACTAM 3.375 GM in SODIUM CHLORIDE 0.9% 50ML 50 ML IV SCH ×2 (02:32→09:45)
[2021-04-19 05:18] VITALS: BP 108/66
[2021-04-19 06:47] LABS: BASOPHILS # (AUTO) 0.2 (0.0-0.1); BASOPHILS % 1.6 % (0.0-1.0); EOSINOPHILS # (AUTO) 0.3 (0.0-0.4); EOSINOPHILS % 3.2 % (0.0-6.0); HEMATOCRIT 33.1 % (34.2-44.1); HEMOGLOBIN 9.8 g/dL (12.0-16.0); LYMPHOCYTES # (AUTO) 4.4 (1.0-3.2); LYMPHOCYTES % 42.3 % (18.0-39.1); MEAN CORPUSCULAR HEMOGLOBIN 24.6 pg (28-32); MEAN CORPUSCULAR HGB CONC 29.6 g/dL (31-35); MONOCYTES # (AUTO) 0.6 (0.2-0.8); MONOCYTES % 6.1 % (4.4-11.3); NEUTROPHILS # (AUTO) 4.8 (2.1-6.9); NEUTROPHILS % 45.9 % (38.7-80.0); PLATELET COUNT 486 x10e3/uL (140-360); RED BLOOD COUNT 3.99 x10e6/uL (3.6-5.1); RED CELL DISTRIBUTION WIDTH 15.9 % (11.7-14.4)
[2021-04-19 07:19] LABS: ALBUMIN 2.5 g/dL (3.5-5.0); ALBUMIN/GLOBULIN RATIO 0.6 (0.8-2.0)
[2021-04-19 07:31] VITALS: BP 108/66
[2021-04-19 07:39] LABS: CALCIUM 8.2 mg/dL (8.4-10.2); CREATININE, SERUM 0.75 mg/dL (0.57-1.11)
[2021-04-19] MEDS: INSULIN LISPRO 100 UNIT/1 ML 3ML VIAL SQ SCH ×2 (08:30→11:30)
[2021-04-19] MEDS: INSULIN REGULAR, HUMAN 100 UNIT/1 ML SQ SCH ×2 (08:30→11:30)
[2021-04-19 08:54] VITALS: BP 97/61
[2021-04-19] MEDS: MUPIROCIN 2% OINT 22 GM TUBE TOP SCH (09:29)
[2021-04-19] MEDS: FOLIC ACID 1 MG TAB PO SCH (09:45)
[2021-04-19] MEDS: FERROUS SULFATE 325 MG TAB PO SCH (09:45)
[2021-04-19 12:13] VITALS: BP 95/57
[2021-04-19] MEDS ORDERED: DOXYCYCLINE HY100 MG PO (14:17)
[2021-04-19] MEDS ORDERED: FEROSUL325 MG PO (14:17)
[2021-04-19] MEDS ORDERED: FOLIC ACID0.8 M1 PO (14:17)
[2021-04-19] MEDS ORDERED: CIPRO500 MG PO (14:17)
[2021-04-19] MEDS ORDERED: NOVOLIN N100 UNIT/1 SC (14:39)
[2021-04-19] MEDS ORDERED: HUMULIN-R100 UNITS/ SC (14:39)
[2021-04-19 16:24] VITALS: BP 103/60
== END 2021-04-19 16:52 | disposition home or self-care (01) | DRG 853 ==
LOC: ER 20:28 → ERHOLD 21:21 → IMCU 04-14 00:15
PROVIDERS: ADMIT Internal Medicine; ATTEND Internal Medicine
PROC: 3E0333Z Introduction of Anti-inflammatory into Peripheral Vein, Percutaneous Approach (ICD-10-PCS; 2021-04-15)
PROC: 0LBW0ZZ Excision of Left Foot Tendon, Open Approach (ICD-10-PCS; principal; 2021-04-15 14:00)
DX: A41.9 Sepsis, unspecified organism (principal); A48.0 Gas gangrene; U07.1 COVID-19; E11.52 Type 2 diabetes mellitus with diabetic peripheral angiopathy with gangrene; E87.2 Acidosis; L03.116 Cellulitis of left lower limb; L97.423 Non-pressure chronic ulcer of left heel and midfoot with necrosis of muscle; R65.20 Severe sepsis without septic shock; I80.8 Phlebitis and thrombophlebitis of other sites; D52.9 Folate deficiency anemia, unspecified; D50.9 Iron deficiency anemia, unspecified; E66.9 Obesity, unspecified; Z68.38 Body mass index [BMI] 38.0-38.9, adult; Z79.4 Long term (current) use of insulin; E11.65 Type 2 diabetes mellitus with hyperglycemia; E11.42 Type 2 diabetes mellitus with diabetic polyneuropathy; F14.10 Cocaine abuse, uncomplicated; F15.10 Other stimulant abuse, uncomplicated; R09.02 Hypoxemia; B96.1 Klebsiella pneumoniae [K. pneumoniae] as the cause of diseases classified elsewhere; B96.89 Other specified bacterial agents as the cause of diseases classified elsewhere
CPT/HCPCS: 36415; 71045; 80048; 80053; 80061; 80307; 81001; 81025; 82607; 82728; 82746; 82948; 83036; 83540; 83605; 83735; 84466; 85025; 86704; 87040; 87071; 87075; 87186; 87205; 87390; 93925; 94799; 96372; 99251; 99285; G0433; G0435; J1100; J1815; J1817; J2001; J2250; J2370; J2405; J2543; J2765; J3010; J3370; J7030; J7050; Q0177; U0002

== ENCOUNTER 2021-05-10 11:58 | Inpatient (IN) | payer SELFPAY ==
[~2021-05-10] VITALS: Ht 167.6 cm; Wt 108.9 kg
[~2021-05-10 11:58] MED LIST changes: +FEROSUL325 MG PO; +FOLIC ACID0.8 M1 PO; +HUMULIN-R100 UNITS/ SC; +NOVOLIN N100 UNIT/1 SC; +SEROQUEL100 MG PO; +VISTARIL50 MG PO
[2021-05-10] MEDS ORDERED: SODIUM CHLORIDE 0.9% 1000ML 1,000 ML IV STA (12:17)
[2021-05-10 13:08] LABS: BASOPHILS # (AUTO) 0.1 (0.0-0.1); BASOPHILS % 0.6 % (0.0-1.0); EOSINOPHILS # (AUTO) 0.1 (0.0-0.4); EOSINOPHILS % 0.4 % (0.0-6.0); HEMATOCRIT 31.4 % (34.2-44.1); HEMOGLOBIN 9.5 g/dL (12.0-16.0); LYMPHOCYTES # (AUTO) 1.3 (1.0-3.2); LYMPHOCYTES % 7.1 % (18.0-39.1); MEAN CORPUSCULAR HEMOGLOBIN 24.5 pg (28-32); MEAN CORPUSCULAR HGB CONC 30.3 g/dL (31-35); MEAN CORPUSCULAR VOLUME 81.1 fL (81-99); MONOCYTES # (AUTO) 0.8 (0.2-0.8); MONOCYTES % 4.7 % (4.4-11.3); NEUTROPHILS # (AUTO) 15.4 (2.1-6.9); NEUTROPHILS % 86.6 % (38.7-80.0); PLATELET COUNT 451 x10e3/uL (140-360); RED BLOOD COUNT 3.87 x10e6/uL (3.6-5.1); RED CELL DISTRIBUTION WIDTH 14.5 % (11.7-14.4)
[2021-05-10 13:16] LABS: INR 1.09; PROTHROMBIN TIME 14.9 seconds (11.9-14.5)
[2021-05-10 13:17] LABS: PARTIAL THROMBOPLASTIN TIME 30.6 seconds (23.8-35.5)
[2021-05-10 13:26] LABS: ALANINE AMINOTRANSFERASE 8 IU/L (0-55); ALBUMIN 2.6 g/dL (3.5-5.0); ALBUMIN/GLOBULIN RATIO 0.5 (0.8-2.0); ALKALINE PHOSPHATASE 109 IU/L (40-150); ANION GAP 18.1 mmol/L (8-16); BLOOD UREA NITROGEN 15 mg/dL (7-26); BUN/CREATININE RATIO 18 (6-25); CALCIUM 9.2 mg/dL (8.4-10.2); CARBON DIOXIDE 19 mmol/L (22-29); CHLORIDE 94 mmol/L (98-107); CREATININE, SERUM 0.84 mg/dL (0.57-1.11); EST GLOMERULAR FILTRATION RATE 76 ML/MIN (60-); GLUCOSE 343 mg/dL (74-118); POTASSIUM 4.1 mmol/L (3.5-5.1); SODIUM 127 mmol/L (136-145)
[2021-05-10] MEDS ORDERED: IBUPROFEN 600 MG TAB PO STA ×2 (13:27)
[2021-05-10] MEDS: CEFEPIME 1 GM in SODIUM CHLORIDE 0.9% 50ML 50 ML IV SCH (13:30)
[2021-05-10] MEDS ORDERED: ACETAMINOPHEN 325 MG TAB PO ONE (13:45)
[2021-05-10] MEDS: SODIUM CHLORIDE 0.9% 1000ML 1,000 ML IV SCH (15:54)
[2021-05-10 17:00] VITALS: BP 101/70
[2021-05-10] MEDS ORDERED: Morphine 4mg Syringe 4 MG/ML INJ IV ONE (17:00)
[2021-05-10] MEDS: CLINDAMYCIN PHOS 900MG/ 50ML 50 ML IV SCH (17:34)
[2021-05-10] MEDS ORDERED: DEXTROSE 50% SYRINGE 50 ML IV PRN ×2 (17:45)
[2021-05-10] MEDS: IBUPROFEN 400 MG TAB PO PRN (19:58)
[2021-05-10 20:07] VITALS: BP 111/63
[2021-05-10 20:33] VITALS: BP 111/63
[2021-05-10] MEDS ORDERED: INSULIN GLARGINE 100 UNITS/ML VIAL SQ SCH (21:00)
[2021-05-10] MEDS ORDERED: Vancomycin IV 1 GM in SODIUM CHLORIDE 0.9% 250ML 250 ML IV SCH (21:00)
[2021-05-10] MEDS ORDERED: INSULIN LISPRO 100 UNIT/1 ML 3ML VIAL SQ SCH (21:00)
[2021-05-10] MEDS: Vancomycin IV 1 GM in SODIUM CHLORIDE 0.9% 250ML 250 ML IV SCH (21:20)
[2021-05-10] MEDS: ACETAMINOPHEN 325 MG TAB PO PRN (21:20)
[2021-05-10] MEDS: QUETIAPINE FUMARATE 100 MG TAB PO SCH (21:20)
[2021-05-10] MEDS: HEPARIN SOD (PORCINE) 5,000 UNIT/ML VIAL SC SCH (21:29)
[2021-05-10] MEDS: INSULIN LISPRO 100 UNIT/1 ML 3ML VIAL SQ SCH (21:29)
[2021-05-10] MEDS: INSULIN GLARGINE 100 UNITS/ML VIAL SQ SCH (21:30)
[2021-05-11] VITALS (7 sets, daily range): BP systolic 94–116; BP diastolic 48–66
[2021-05-11] MEDS: SODIUM CHLORIDE 0.9% 1000ML 1,000 ML IV SCH ×3 (01:35→21:24)
[2021-05-11] MEDS: CLINDAMYCIN PHOS 900MG/ 50ML 50 ML IV SCH ×3 (01:35→17:47)
[2021-05-11] MEDS: ACETAMINOPHEN 325 MG TAB PO PRN ×3 (02:22→19:50)
[2021-05-11 05:02] LABS: BASOPHILS # (AUTO) 0.1 (0.0-0.1); BASOPHILS % 0.8 % (0.0-1.0); EOSINOPHILS # (AUTO) 0.2 (0.0-0.4); EOSINOPHILS % 1.6 % (0.0-6.0); HEMATOCRIT 29.3 % (34.2-44.1); LYMPHOCYTES # (AUTO) 1.6 (1.0-3.2); LYMPHOCYTES % 14.9 % (18.0-39.1); MEAN CORPUSCULAR HEMOGLOBIN 24.9 pg (28-32); MEAN CORPUSCULAR HGB CONC 30.7 g/dL (31-35); MEAN CORPUSCULAR VOLUME 80.9 fL (81-99); MONOCYTES # (AUTO) 0.8 (0.2-0.8); MONOCYTES % 7.5 % (4.4-11.3); NEUTROPHILS # (AUTO) 7.9 (2.1-6.9); NEUTROPHILS % 74.6 % (38.7-80.0); PLATELET COUNT 435 x10e3/uL (140-360); RED BLOOD COUNT 3.62 x10e6/uL (3.6-5.1); RED CELL DISTRIBUTION WIDTH 14.6 % (11.7-14.4)
[2021-05-11 05:35] LABS: ALBUMIN 2.1 g/dL (3.5-5.0); ALBUMIN/GLOBULIN RATIO 0.5 (0.8-2.0); ANION GAP 13.1 mmol/L (8-16); CALCIUM 8.3 mg/dL (8.4-10.2); CREATININE, SERUM 1.08 mg/dL (0.57-1.11); POTASSIUM 4.1 mmol/L (3.5-5.1)
[2021-05-11 06:03] LABS: % IRON SATURATION 2 % (15-50); IRON 5 ug/dL (50-170); TOTAL IRON BINDING CAPACITY 246 ug/dL (261-478); TRANSFERRIN 176 mg/dL (180-382)
[2021-05-11] MEDS: INSULIN LISPRO 100 UNIT/1 ML 3ML VIAL SQ SCH ×7 (06:36→21:14)
[2021-05-11] MEDS: NON-FORMULARY MEDICATION (Folic Acid 0.8 MG) PO SCH (09:00)
[2021-05-11] MEDS: CEFEPIME 1 GM in SODIUM CHLORIDE 0.9% 50ML 50 ML IV SCH ×2 (09:04→23:06)
[2021-05-11] MEDS: IBUPROFEN 400 MG TAB PO PRN ×2 (09:04→17:38)
[2021-05-11] MEDS: Vancomycin IV 1 GM in SODIUM CHLORIDE 0.9% 250ML 250 ML IV SCH ×2 (09:36→21:13)
[2021-05-11] MEDS: HEPARIN SOD (PORCINE) 5,000 UNIT/ML VIAL SC SCH ×2 (09:36→21:14)
[2021-05-11] MEDS ORDERED: GADOBENATE DIMEGLUMINE 1 ML IV ONE (11:00)
[2021-05-11] MEDS: IRON SUCROSE 100 MG in SODIUM CHLORIDE 0.9% 100 ML 100 ML IV SCH (12:10)
[2021-05-11] MEDS ORDERED: Morphine 2mg Syringe 2 MG/ML SYR IV ONE (12:30)
[2021-05-11] MEDS: QUETIAPINE FUMARATE 100 MG TAB PO SCH (21:13)
[2021-05-11] MEDS: INSULIN GLARGINE 100 UNITS/ML VIAL SQ SCH (21:36)
[2021-05-11] MEDS ORDERED: SODIUM CHLORIDE 0.9% 50ML 50 ML ONE (21:37)
[2021-05-12] VITALS (8 sets, daily range): BP systolic 102–132; BP diastolic 54–112
[2021-05-12] MEDS: ACETAMINOPHEN 325 MG TAB PO PRN ×2 (00:07→21:47)
[2021-05-12] MEDS: CLINDAMYCIN PHOS 900MG/ 50ML 50 ML IV SCH ×3 (01:18→17:59)
[2021-05-12] MEDS: IBUPROFEN 400 MG TAB PO PRN ×3 (05:25→19:46)
[2021-05-12] MEDS: INSULIN LISPRO 100 UNIT/1 ML 3ML VIAL SQ SCH ×7 (07:30→22:10)
[2021-05-12] MEDS: Vancomycin IV 1 GM in SODIUM CHLORIDE 0.9% 250ML 250 ML IV SCH ×2 (09:00→21:38)
[2021-05-12] MEDS: NON-FORMULARY MEDICATION (Folic Acid 0.8 MG) PO SCH (09:00)
[2021-05-12] MEDS: CEFEPIME 1 GM in SODIUM CHLORIDE 0.9% 50ML 50 ML IV SCH ×2 (09:35→19:59)
[2021-05-12] MEDS: HEPARIN SOD (PORCINE) 5,000 UNIT/ML VIAL SC SCH ×2 (09:43→19:57)
[2021-05-12] MEDS: COLLAGENASE 5 GM TUBE TOP SCH (09:45)
[2021-05-12] MEDS: IRON SUCROSE 100 MG in SODIUM CHLORIDE 0.9% 100 ML 100 ML IV SCH (13:00)
[2021-05-12 14:29] LABS: FREE T4 (FREE THYROXINE) 0.96 ng/dL (0.8-1.8); THYROID STIMULATING HORMONE 0.711 uIU/mL (0.350-4.940)
[2021-05-12] MEDS: QUETIAPINE FUMARATE 100 MG TAB PO SCH (20:00)
[2021-05-12] MEDS ORDERED: INSULIN GLARGINE 100 UNITS/ML VIAL SQ SCH ×2 (21:00)
[2021-05-13] VITALS (7 sets, daily range): BP systolic 110–137; BP diastolic 54–85
[2021-05-13] MEDS: CLINDAMYCIN PHOS 900MG/ 50ML 50 ML IV SCH ×3 (01:50→16:33)
[2021-05-13 06:00] LABS: BASOPHILS # (AUTO) 0.1 (0.0-0.1); BASOPHILS % 1.3 % (0.0-1.0); EOSINOPHILS # (AUTO) 0.4 (0.0-0.4); EOSINOPHILS % 5.9 % (0.0-6.0); HEMATOCRIT 30.4 % (34.2-44.1); HEMOGLOBIN 9.2 g/dL (12.0-16.0); LYMPHOCYTES # (AUTO) 2.4 (1.0-3.2); LYMPHOCYTES % 31.3 % (18.0-39.1); MEAN CORPUSCULAR HEMOGLOBIN 24.3 pg (28-32); MEAN CORPUSCULAR HGB CONC 30.3 g/dL (31-35); MEAN CORPUSCULAR VOLUME 80.4 fL (81-99); MONOCYTES # (AUTO) 0.6 (0.2-0.8); MONOCYTES % 7.6 % (4.4-11.3); NEUTROPHILS % 53.1 % (38.7-80.0); PLATELET COUNT 484 x10e3/uL (140-360); RED BLOOD COUNT 3.78 x10e6/uL (3.6-5.1); RED CELL DISTRIBUTION WIDTH 14.6 % (11.7-14.4)
[2021-05-13 06:27] LABS: ANION GAP 10.9 mmol/L (8-16); CREATININE, SERUM 0.72 mg/dL (0.57-1.11); POTASSIUM 3.9 mmol/L (3.5-5.1)
[2021-05-13] MEDS: INSULIN LISPRO 100 UNIT/1 ML 3ML VIAL SQ SCH ×7 (07:30→20:19)
[2021-05-13] MEDS: NON-FORMULARY MEDICATION (Folic Acid 0.8 MG) PO SCH (08:02)
[2021-05-13] MEDS: CEFEPIME 1 GM in SODIUM CHLORIDE 0.9% 50ML 50 ML IV SCH ×2 (08:05→20:40)
[2021-05-13] MEDS: IBUPROFEN 400 MG TAB PO PRN ×2 (08:05→16:10)
[2021-05-13] MEDS: HEPARIN SOD (PORCINE) 5,000 UNIT/ML VIAL SC SCH ×2 (08:14→20:37)
[2021-05-13 08:15] LABS: EOSINOPHILS % (MANUAL) 7 % (0-7); LYMPHOCYTES % (MANUAL) 28 % (19-48); MONOCYTES % (MANUAL) 7 % (3.4-9.0); MYELOCYTES % (MANUAL) 1 % (0-0); NEUTROPHILS % (MANUAL) 57 % (40-74); PLATELET ESTIMATE ADEQUATE
[2021-05-13 08:16] LABS: PLATELET MORPHOLOGY COMMENT NORMAL; RBC MORPHOLOGY COMMENT NORMAL
[2021-05-13] MEDS: COLLAGENASE 5 GM TUBE TOP SCH (09:00)
[2021-05-13] MEDS: Vancomycin IV 1 GM in SODIUM CHLORIDE 0.9% 250ML 250 ML IV SCH (09:40)
[2021-05-13] MEDS ORDERED: Vancomycin IV 1 GM VIAL ONE (11:48)
[2021-05-13] MEDS ORDERED: BUPIVACAINE HCL 0.5% INJ 30 ML VIAL INJ ONE (12:18)
[2021-05-13] MEDS ORDERED: POVIDONE IODINE 0.05% 0.05 % ML PO ONE (13:04)
[2021-05-13] MEDS ORDERED: ONDANSETRON HCL INJ 2MG/ML 2ML 2 MG/ML VIAL ONE (13:04)
[2021-05-13] MEDS ORDERED: SEVOFLURANE INHAL SOLN 250 ML PEN BTL ONE (13:04)
[2021-05-13] MEDS ORDERED: PROPOFOL IV EMULSION 10 MG/ML 20 ML VIAL ONE (13:04)
[2021-05-13] MEDS ORDERED: LIDOCAINE HCL 2% LOCAL INJ 5 ML SDV VIAL INJ ONE (13:04)
[2021-05-13] MEDS: ACETAMINOPHEN 325 MG TAB PO PRN ×3 (13:15→22:10)
[2021-05-13] MEDS: SODIUM CHLORIDE 0.9% 1000ML 1,000 ML IV SCH ×3 (13:17→23:17)
[2021-05-13] MEDS ORDERED: FENTANYL CITRATE/PF 100MCG/2 ML INJ ONE (13:19)
[2021-05-13] MEDS ORDERED: MIDAZOLAM HCL 2 MG/2 ML VIAL ONE (13:19)
[2021-05-13] MEDS: IRON SUCROSE 100 MG in SODIUM CHLORIDE 0.9% 100 ML 100 ML IV SCH (14:50)
[2021-05-13] MEDS: INSULIN GLARGINE 100 UNITS/ML VIAL SQ SCH (20:36)
[2021-05-13] MEDS: QUETIAPINE FUMARATE 100 MG TAB PO SCH (20:40)
[2021-05-13] MEDS: Vancomycin IV 1.25 GM in SODIUM CHLORIDE 0.9% 250ML 250 ML IV SCH (21:59)
[2021-05-14] VITALS (8 sets, daily range): BP systolic 97–138; BP diastolic 54–88
[2021-05-14] MEDS: CLINDAMYCIN PHOS 900MG/ 50ML 50 ML IV SCH ×3 (02:13→16:31)
[2021-05-14] MEDS: IBUPROFEN 400 MG TAB PO PRN ×3 (07:28→20:10)
[2021-05-14] MEDS: INSULIN LISPRO 100 UNIT/1 ML 3ML VIAL SQ SCH ×7 (08:00→21:08)
[2021-05-14] MEDS: NON-FORMULARY MEDICATION (Folic Acid 0.8 MG) PO SCH (09:00)
[2021-05-14] MEDS: HEPARIN SOD (PORCINE) 5,000 UNIT/ML VIAL SC SCH ×2 (09:00→21:06)
[2021-05-14] MEDS: COLLAGENASE 5 GM TUBE TOP SCH (09:00)
[2021-05-14] MEDS: SODIUM CHLORIDE 0.9% 1000ML 1,000 ML IV SCH ×4 (09:17→19:17)
[2021-05-14] MEDS: CEFEPIME 1 GM in SODIUM CHLORIDE 0.9% 50ML 50 ML IV SCH ×2 (09:34→20:48)
[2021-05-14] MEDS: ACETAMINOPHEN 325 MG TAB PO PRN ×3 (09:39→18:40)
[2021-05-14] MEDS: Vancomycin IV 1.25 GM in SODIUM CHLORIDE 0.9% 250ML 250 ML IV SCH ×2 (10:00→20:48)
[2021-05-14] MEDS: QUETIAPINE FUMARATE 100 MG TAB PO SCH (20:49)
[2021-05-14] MEDS: INSULIN GLARGINE 100 UNITS/ML VIAL SQ SCH (21:09)
[2021-05-15] VITALS (8 sets, daily range): BP systolic 119–161; BP diastolic 77–98
[2021-05-15] MEDS: CLINDAMYCIN PHOS 900MG/ 50ML 50 ML IV SCH ×3 (02:08→18:00)
[2021-05-15] MEDS: ACETAMINOPHEN 325 MG TAB PO PRN ×3 (05:14→19:52)
[2021-05-15] MEDS: SODIUM CHLORIDE 0.9% 1000ML 1,000 ML IV SCH ×3 (05:17→19:37)
[2021-05-15] MEDS: CEFEPIME 1 GM in SODIUM CHLORIDE 0.9% 50ML 50 ML IV SCH ×2 (08:29→19:38)
[2021-05-15] MEDS: INSULIN LISPRO 100 UNIT/1 ML 3ML VIAL SQ SCH ×6 (08:29→21:02)
[2021-05-15] MEDS: COLLAGENASE 5 GM TUBE TOP SCH (08:32)
[2021-05-15] MEDS: HEPARIN SOD (PORCINE) 5,000 UNIT/ML VIAL SC SCH ×2 (08:32→21:03)
[2021-05-15] MEDS: NON-FORMULARY MEDICATION (Folic Acid 0.8 MG) PO SCH (08:32)
[2021-05-15] MEDS: Vancomycin IV 1.25 GM in SODIUM CHLORIDE 0.9% 250ML 250 ML IV SCH ×2 (10:36→20:47)
[2021-05-15] MEDS: IBUPROFEN 400 MG TAB PO PRN ×2 (17:06→20:47)
[2021-05-15] MEDS: QUETIAPINE FUMARATE 100 MG TAB PO SCH (20:47)
[2021-05-15] MEDS ORDERED: INSULIN GLARGINE 100 UNITS/ML VIAL SQ SCH (21:00)
[2021-05-16 00:52] VITALS: BP 141/98
[2021-05-16] MEDS: ACETAMINOPHEN 325 MG TAB PO PRN ×3 (00:55→09:58)
[2021-05-16] MEDS: SODIUM CHLORIDE 0.9% 1000ML 1,000 ML IV SCH ×2 (01:17→11:20)
[2021-05-16] MEDS: CLINDAMYCIN PHOS 900MG/ 50ML 50 ML IV SCH ×2 (01:34→09:57)
[2021-05-16 04:00] VITALS: BP 113/78
[2021-05-16 05:23] LABS: BASOPHILS # (AUTO) 0.1 (0.0-0.1); BASOPHILS % 1.4 % (0.0-1.0); EOSINOPHILS # (AUTO) 0.5 (0.0-0.4); EOSINOPHILS % 5.8 % (0.0-6.0); HEMATOCRIT 30.5 % (34.2-44.1); HEMOGLOBIN 9.2 g/dL (12.0-16.0); LYMPHOCYTES # (AUTO) 3.3 (1.0-3.2); LYMPHOCYTES % 39.2 % (18.0-39.1); MEAN CORPUSCULAR HEMOGLOBIN 24.7 pg (28-32); MEAN CORPUSCULAR HGB CONC 30.2 g/dL (31-35); MEAN CORPUSCULAR VOLUME 81.8 fL (81-99); MONOCYTES # (AUTO) 0.6 (0.2-0.8); MONOCYTES % 7.1 % (4.4-11.3); NEUTROPHILS # (AUTO) 3.8 (2.1-6.9); PLATELET COUNT 508 x10e3/uL (140-360); RED BLOOD COUNT 3.73 x10e6/uL (3.6-5.1); RED CELL DISTRIBUTION WIDTH 15.1 % (11.7-14.4)
[2021-05-16 05:44] LABS: ANION GAP 11.8 mmol/L (8-16); CREATININE, SERUM 0.6 mg/dL (0.57-1.11); POTASSIUM 3.8 mmol/L (3.5-5.1)
[2021-05-16 07:12] LABS: EOSINOPHILS % (MANUAL) 3 % (0-7); LYMPHOCYTES % (MANUAL) 44 % (19-48); MONOCYTES % (MANUAL) 4 % (3.4-9.0); NEUTROPHILS % (MANUAL) 49 % (40-74); PLATELET ESTIMATE SLIGHTLY INCREASED
[2021-05-16 07:13] LABS: PLATELET MORPHOLOGY COMMENT NORMAL; RBC MORPHOLOGY COMMENT NORMAL
[2021-05-16] MEDS: INSULIN LISPRO 100 UNIT/1 ML 3ML VIAL SQ SCH ×4 (07:30→11:30)
[2021-05-16 08:00] VITALS: BP 146/84
[2021-05-16] MEDS: HEPARIN SOD (PORCINE) 5,000 UNIT/ML VIAL SC SCH (08:10)
[2021-05-16] MEDS: IBUPROFEN 400 MG TAB PO PRN (08:10)
[2021-05-16] MEDS: CEFEPIME 1 GM in SODIUM CHLORIDE 0.9% 50ML 50 ML IV SCH (08:12)
[2021-05-16] MEDS: NON-FORMULARY MEDICATION (Folic Acid 0.8 MG) PO SCH (08:13)
[2021-05-16] MEDS: COLLAGENASE 5 GM TUBE TOP SCH (09:00)
[2021-05-16] MEDS ORDERED: CIPRO500 MG PO (09:33)
[2021-05-16] MEDS ORDERED: DOXYCYCLINE HY100 MG PO (09:33)
[2021-05-16] MEDS ORDERED: HUMULIN-R100 UNITS/ SC (09:33)
[2021-05-16] MEDS ORDERED: NOVOLIN N100 UNIT/1 SC (09:33)
[2021-05-16] MEDS: Vancomycin IV 1.25 GM in SODIUM CHLORIDE 0.9% 250ML 250 ML IV SCH (11:20)
[2021-05-16 11:39] VITALS: BP 129/75
[2021-05-16] MEDS ORDERED: CEFTRIAXONE 2 GM in SODIUM CHLORIDE 0.9% 100 ML IV SCH (20:00)
== END 2021-05-16 14:15 | disposition home or self-care (01) | DRG 264 ==
LOC: ER 12:00 → ERHOLD 15:41 → MED/SURG3 16:44
PROVIDERS: ADMIT Internal Medicine; ATTEND Internal Medicine
PROC: 0JBR0ZZ Excision of Left Foot Subcutaneous Tissue and Fascia, Open Approach (ICD-10-PCS; 2021-05-13)
PROC: 0LBW0ZZ Excision of Left Foot Tendon, Open Approach (ICD-10-PCS; principal; 2021-05-13 12:00)
DX: E11.52 Type 2 diabetes mellitus with diabetic peripheral angiopathy with gangrene (principal); L03.114 Cellulitis of left upper limb; L03.113 Cellulitis of right upper limb; M86.8X7 Other osteomyelitis, ankle and foot; I96 Gangrene, not elsewhere classified; E46 Unspecified protein-calorie malnutrition; E11.69 Type 2 diabetes mellitus with other specified complication; Z79.4 Long term (current) use of insulin; Z91.14 Patient's other noncompliance with medication regimen; F14.10 Cocaine abuse, uncomplicated; Z91.19 Patient's noncompliance with other medical treatment and regimen; E11.42 Type 2 diabetes mellitus with diabetic polyneuropathy; Z79.899 Other long term (current) drug therapy; B96.89 Other specified bacterial agents as the cause of diseases classified elsewhere; Z20.822 Contact with and (suspected) exposure to COVID-19; E11.621 Type 2 diabetes mellitus with foot ulcer; L97.524 Non-pressure chronic ulcer of other part of left foot with necrosis of bone; Z68.38 Body mass index [BMI] 38.0-38.9, adult; D50.9 Iron deficiency anemia, unspecified
CPT/HCPCS: 36415; 36584; 71045; 72156; 80048; 80053; 80202; 82948; 83036; 83540; 83605; 84439; 84443; 84466; 84702; 85025; 85610; 85730; 87071; 87075; 87186; 87205; 93005; 94799; 96372; 97139; 99251; 99284; J0692; J1644; J1756; J1815; J2001; J2250; J2270; J2405; J3010; J3370; J7030; J7050; U0002

== ENCOUNTER 2021-10-29 04:23 | Emergency (ER) | payer SELFPAY ==
[~2021-10-29] VITALS: Ht 165.1 cm; Wt 84.8 kg
== END 2021-10-29 05:16 | disposition home or self-care (01) ==
LOC: ER 04:31
DX: Z48.01 Encounter for change or removal of surgical wound dressing (principal); M79.672 Pain in left foot; E11.9 Type 2 diabetes mellitus without complications
CPT/HCPCS: 99282

== ENCOUNTER 2024-02-27 12:25 | Emergency (ER) | payer SELFPAY ==
[~2024-02-27] VITALS: Ht 165.1 cm; Wt 104.3 kg
[2024-02-27 13:16] LABS: BILIRUBIN,URINE SMALL (NEGATIVE); CLARITY,URINE TURBID (CLEAR); COLOR,URINE YELLOW (YELLOW); GLUCOSE, URINE >=1000 (NEGATIVE); KETONES,URINE TRACE (NEGATIVE); LEUKOCYTE ESTERASE ,URINE TRACE (NEGATIVE); NITRITE,URINE POSITIVE (NEGATIVE); PH,URINE 5.5 (5 - 7); PREGNANCY TEST, URINE NEGATIVE (NEGATIVE); PROTEIN,URINE DIPSTICK >=300 (NEGATIVE); URINE UROBILINOGEN 0.2 mg/dL (0.2 - 1)
[2024-02-27] MEDS: METRONIDAZOLE 500 MG TAB PO ONE (13:25)
[2024-02-27] MEDS: CEFTRIAXONE 1 GM VIAL IM ONE (13:25)
[2024-02-27] MEDS: ONDANSETRON HCL 4 MG ORAL DISINTEGRATING TAB PO ONE (13:25)
[2024-02-27 13:26] LABS: BACTERIA,URINE MANY /HPF; EPITHELIAL CELLS,URINE MANY /LPF; RBC,URINE >50 /HPF (0-5); WBC,URINE (MAN) >50 /HPF (0-5)
[2024-02-27] MEDS ORDERED: ACYCLOVIR400 MG PO (13:33)
[2024-02-27] MEDS ORDERED: DOXYCYCLINE HY100 MG PO (13:33)
[2024-02-27 13:41] VITALS: PULSE 83; RESP 16; TEMP 98.4; O2SAT 100
== END 2024-02-27 13:49 | disposition home or self-care (01) ==
LOC: ER 12:28
DX: A60.00 Herpesviral infection of urogenital system, unspecified (principal); E11.9 Type 2 diabetes mellitus without complications
CPT/HCPCS: 81001; 81025; 99283; J0696; Q0162